=== PATIENT | female | born 1975 | race Caucasian/White ===

== ENCOUNTER 2020-06-30 20:58 | Emergency (ER) | payer BC ==
[~2020-06-30] VITALS: Ht 170.2 cm; Wt 93.9 kg
[2020-06-30 21:19] VITALS: Ht 170.2 cm; Wt 93.9 kg
[2020-06-30] MEDS ORDERED: KEPPRA750 MG PO (21:21)
[2020-06-30] MEDS ORDERED: LINZESS72 MCG PO (21:22)
[2020-06-30] MEDS ORDERED: DILANTIN100 MG PO (21:23)
[2020-06-30] MEDS ORDERED: ACETAZOLAMIDE250 MG PO (21:27)
[2020-06-30] MEDS ORDERED: VALTREX1000 MG PO (21:27)
[2020-06-30] MEDS ORDERED: METHOCARBAMOL500 MG PO (21:28)
[2020-06-30] MEDS ORDERED: FLUTICASONE PRO16 GM NASAL (21:28)
[2020-06-30] MEDS ORDERED: TRIPLE ANTIBI28.4 GM TOPICAL (21:48)
[2020-06-30] MEDS ORDERED: TYLENOL W/CODEI1 TAB PO (21:48)
[2020-06-30 23:00] VITALS: BP 122/77
== END 2020-06-30 22:30 | disposition home or self-care (01) ==
LOC: D.ER 20:58
DX: T23.121A Burn of first degree of single right finger (nail) except thumb, initial encounter (principal); X58.XXXA Exposure to other specified factors, initial encounter

== ENCOUNTER → 2021-02-09 20:59 | Outpatient (CLI) | payer MEDICARE ==
[2020-06-30 21:19] VITALS: BMI 32.4
[~2021-02-09 20:59] MED LIST: ACETAZOLAMIDE250 MG PO; DILANTIN100 MG PO; FLUTICASONE PRO16 GM NASAL; KEPPRA750 MG PO; LINZESS72 MCG PO; METHOCARBAMOL500 MG PO; TRIPLE ANTIBI28.4 GM TOPICAL; TYLENOL W/CODEI1 TAB PO; VALTREX1000 MG PO
== END | disposition home or self-care (01) ==
LOC: D.MAMMO 11:45
PROVIDERS: ATTEND Emergency Medicine
DX: Z12.31 Encounter for screening mammogram for malignant neoplasm of breast (principal)